=== PATIENT | female | born 1985 | race Caucasian/White ===

== ENCOUNTER 2022-05-08 21:24 | Emergency (ER) | payer OTHER ==
[~2022-05-08] VITALS: Ht 152.4 cm; Wt 125.0 kg
[2022-05-09 00:18] VITALS: BP 118/73
[2022-05-09 00:57] LABS: APPEARANCE,URINE CLEAR (CLEAR); BILIRUBIN,URINE NEGATIVE (NEGATIVE); GLUCOSE, URINE (UA) NEGATIVE (NEGATIVE); KETONES,URINE NEGATIVE (NEGATIVE); LEUKOCYTE ESTERASE ,URINE NEGATIVE (NEGATIVE); NITRATE,URINE NEGATIVE (NEGATIVE); OCCULT BLOOD,URINE NEGATIVE (NEGATIVE); PH,URINE 5.5 (5.0-8.0); PROTEIN,URINE NEGATIVE (NEGATIVE); SPECIFIC GRAVITIY, URINE 1.009 (1.003-1.030); UROBILINOGEN,URINE <=1.0 mg/dL (<=1.0)
[2022-05-09 01:16] LABS: GLUCOMETER DEV NAME(LOC) ERT.5; GLUCOSE,POINT OF CARE 119 MG/DL (70-110)
== END 2022-05-09 02:12 | disposition home or self-care (01) ==
LOC: EMS 21:27
DX: R55 Syncope and collapse (principal)
CPT/HCPCS: 81003; 82962; 84703; 93005; 99284